=== PATIENT | male | born 1965 | race African-American/Black ===

== ENCOUNTER 2024-06-13 06:54 | Day surgery (SDC) | payer OTHER, SELFPAY ==
[2024-05-28 13:45] VITALS: BMI 31.9
[2024-06-13] VITALS (7 sets, daily range): BP systolic 87–136; BP diastolic 56–87; PULSE 65–89; RESP 10–18; TEMP 36.3–36.4; O2SAT 93–98; BMI 32.3
--- NOTE | 2024-06-13 06:52 | P.PNAN_ITS ---
Anes - Initial Pre Proc Eval Procedure: Operation Date: 06/13/24 09:00 Proposed Procedures p Excision Right Lower Eyelid Lesion and Repair - Mely Lucas MD Date/Time: 06/13/24 06:52 Surgeon: Mely Lucas MD Pre Op Diagnosis: Neoplasm of Uncertain Behavior of Skin Patient Data Age: 59 Gender: M Height: 1.8 m Weight: 104 kg Allergies Allergy/AdvReac Type Severity Reaction Status Date / Time amoxicillin Allergy Swelling Verified 06/13/24 07:29 Home Medications Medication Instructions Recorded Confirmed Type albuterol sulfate 2 mg tablet 2 mg PO TID 04/02/24 05/28/24 History aspirin 81 mg tablet,delayed 81 mg PO DAILY 04/02/24 05/28/24 History release lisinopril 5 mg tablet 5 mg PO BID 04/02/24 05/28/24 History metformin 500 mg tablet 500 mg PO BID 04/02/24 05/28/24 History rosuvastatin 10 mg PO HS 05/28/24 05/28/24 History Patient hx anesthesia problems: none Family hx anesthesia problems: none Results Review: All pre-operative results and documents have been reviewed as part of the pre- operative evaluation. [facility] Past Medical History Medical History (Updated 06/13/24 @ 06:53 by Temo Kebede DO) CKD (chronic kidney disease) COPD (chronic obstructive pulmonary disease) Diabetes type 2, controlled Hepatitis Hyperlipidemia Hypertension CARTER (nonalcoholic steatohepatitis) Social History Social History Smoking status: Never smoker Anes - Eval Final PreProcedure Day of Procedure Patient weight: obese Heart: regular rate and rhythm Lungs: clear to auscultation Airway: Mallampati scale class II Neurological: alert and oriented Last oral intake: >/= 8 hours ASA classification: III Emergent: no Anesthetic plan: proceed Anesthesia type and monitoring: general ETT and standard monitoring
--- NOTE | 2024-06-13 06:59 | P.HP_ITS ---
History of Present Illness History of Present Illness Chief complaint: Neoplasm of Uncertain Behavior of Skin Narrative: Patient seen and examined in pre-operative holding area. No interval change in medical history or symptoms. Patient recalls previous discussion of benefits and alternatives to procedure. Continues to desire to proceed with right lower eyelid lesion excision. Reviewed procedure, post-op expectations and risks including but not limited to bleeding, infection, undesireable cosmetic appeara nce, asymmetry, recurrence, entropion, ectropion, changes in vision . I discussed the possible use of assistants and their participation in the case. Patient stated understanding and signed the consent form wishing to proceed. Review of Systems Review of Systems: All systems reviewed & are unremarkable except as noted in HPI and below PMFSH Past Medical History Medical History (Updated 06/13/24 @ 06:53 by Temo Kebede DO) CKD (chronic kidney disease) COPD (chronic obstructive pulmonary disease) Diabetes type 2, controlled Hepatitis Hyperlipidemia Hypertension CARTER (nonalcoholic steatohepatitis) Social History Social History Smoking status: Never smoker Meds Home Medications and Allergies Home Medications Medication Instructions Recorded Confirmed Type albuterol sulfate 2 mg tablet 2 mg PO TID 04/02/24 05/28/24 History aspirin 81 mg tablet,delayed 81 mg PO DAILY 04/02/24 05/28/24 History release lisinopril 5 mg tablet 5 mg PO BID 04/02/24 05/28/24 History metformin 500 mg tablet 500 mg PO BID 04/02/24 05/28/24 History rosuvastatin 10 mg PO HS 05/28/24 05/28/24 History Allergies Allergy/AdvReac Type Severity Reaction Status Date / Time amoxicillin Allergy Swelling Verified 06/13/24 07:29 Exam Narrative: unchanged Assessment and Plan Assessment and plan (1) Neoplasm of uncertain behavior of skin: Code(s): D48.5 - Neoplasm of uncertain behavior of skin Status: Acute Assessment and Plan: cont as above
--- NOTE | 2024-06-13 06:59 | W.PM.PROC2 ---
Procedure Note - Detailed Date of Procedure 06/13/24 Pre-op Diagnosis adenocarcinoma right lower eyelid Post-op Diagnosis Same Procedure Performed excision right lower eyelid lesion Surgeon Mely Lucas MD [employer] giovani cochran pa-c Anesthesia General Description of Procedure Patient was seen in the preoperative holding area where the right lower eyelid was marked and consent form signed. The patient was taken back to the operating room placed on the table in the supine position. Time-out was performed with Anesthesia, surgery, and staff agree on patient's names, site, and surgery to be performed. SCDs were placed on the lower extremities and inflated. Antibiotics were given IV. After general anesthesia was administered the area was prepped and draped in usual sterile fashion. A corneal shield was placed on the right eye. 1.5cc 1%lido with epi and 0.5% marcaine plain used for local. Using a 15 blade scalpel I proceeded with making a full-thickness wedge incision on the lower eyelid encompassing the lesion with 3 mm margins on either side. After resection of the specimen hemostasis was obtained with Bovie cautery. Irrigated with BSS. The tarsal plate was sutured with 5-0 Vicryl in vertical mattress faschion with knot anterior facing. 5-0 vicryl was used to repair orbicularis. 5-0 gut was used for the skin at the lid margin. 5-0 Prolene was used for the lower eyelid skin. Dog ear was incised inferiorly but not crossing malar crease and closed with 5-0 prolene. Excision of the lesion resulted in a 1 cm defect. The corneal shield was removed and copious irrigation with BSS. ophtalmic bacitracin placed on internal lamella and lid margins. A dressing of Steri-Strips and an eye patch was applied. Patient was awakened from anesthesia and transferred to the recovery room in stable condition. complications: None estimated blood loss: 2 cc disposition: Patient tolerated the procedure well and will return to his facility in stable condition Giovani Cochran PA-C was essential for positioning, retraction, closure and dressing placement AM Billing Surgery - Charge Forward: Surgery Billing ([id number] for giovani)
[2024-06-13] MEDS: LACTATED RINGERS 1,000 ML 30 ML IV CONT (07:56)
[2024-06-13 08:25] LABS: Glucose Point of Care 118 mg/dl (65-105)
[2024-06-13] MEDS: ceFAZolin SODIUM 2 GM/20 ML SW SYRINGE IV PUSH (08:30)
[2024-06-13] MEDS: LIDO 1%/EPINEPHRINE 1:100,000 50 ML VIAL INFILTRATE (08:42)
[2024-06-13] MEDS: BUPivacaine HCL 0.5% 10 ML AMP 2.5 ML INFILTRATE (08:42)
[2024-06-13] MEDS: NEOMYCIN/POLYMYXIN/DEXAMETH OP OINT 3.5 GM TUBE 1 APPLIC AFFCTD EYE (09:19)
--- NOTE | 2024-06-13 09:55 | SUR.PHASEI ---
0947 Ice pack remains to right eye over dressing. Dressing dry and intact. Patient resting quietly, no grimace, skin warm and dry. Lillian hugger and warm blankets in place over body
--- NOTE | 2024-06-13 10:05 | SUR.PHASEI ---
1004 awake, denies pain, ice pack removed, head of stretcher elevated 40 degree, denies nausea
[2024-06-13] MEDS: oxyCODONE HCL (*CRX) 5 MG TAB IR PO (10:49)
--- NOTE | 2024-06-13 12:01 | WPDANESPN ---
Anes - Prog Note Post-Op Date/Time: 06/13/24 12:01 Cardiovascular status: normal Respiratory status: normal Airway patency: baseline Mental status: baseline Post-Op hydration status: normal Vital Signs: Last Vital Signs Temp 36.3 C L 06/13/24 09:32 Pulse 85 06/13/24 10:42 Resp 18 06/13/24 10:42 BP 108/76 06/13/24 10:42 Pulse Ox 98 06/13/24 10:42 O2 Del Method Room Air 06/13/24 10:42 O2 Flow Rate 8 06/13/24 10:01 Pain Score (VAS): 2 I/O: Intake & Output 06/12/24 06/13/24 06/13/24 23:59 07:59 15:59 Intake Total 0 Balance 0 06/13/24 07:49 POC Capillary Glucose 118 H Post-procedural complaints: none Patient Feedback: Patient satisfied with anesthetic care. Other Findings: Patient vital signs back to baseline. Patient denies nausea and vomiting. Patient's pain under control. Patient OK for discharge.
== END 2024-06-13 11:05 ==
PROVIDERS: Visit Provider Plastic Surgery
PROC: (CPT 67961; principal; 2024-06-13 09:00)
DX: C44.192 Other specified malignant neoplasm of skin of right eyelid, including canthus (principal)
CPT/HCPCS: 67961

== ENCOUNTER 2024-06-13 10:26 | Outpatient (NON) | payer OTHER, SELFPAY | END 2024-06-13 10:27 | disposition home or self-care (01) | LOC: ANHLAB 06-14 10:27 | PROVIDERS: Visit Provider Plastic Surgery | DX: D48.5 Neoplasm of uncertain behavior of skin (principal) | CPT/HCPCS: 88305 ==